=== PATIENT | male | born 1985 | race African-American/Black ===

== ENCOUNTER 2018-09-06 21:14 | Emergency (ER) | payer OTHER ==
[2018-09-06 21:56] VITALS: BP 152/98
[2018-09-06] MEDS ORDERED: PREDNISONE 20 MG TABLET PO ONE (22:44)
--- NOTE | 2018-09-06 22:53 | ER Document Report ---
ED General - General Chief Complaint: R side of face not moving Stated Complaint: SIDE OF FACE WILL NOT MOVE Time Seen by Provider: 09/06/18 22:32 Notes: Patient is a 33-year-old male that presents to the emergency department for chief complaint of right facial droop. Patient states that his symptoms started yesterday when he noticed this in the evening. He states his been about the same since it started. He is having difficulty smiling, and raising his eyebrow on the right side of his face. He states he was diagnosed with gout about a week ago, but denies any other recent illnesses, denies any recent cough, runny nose. He denies having any headache, lightheadedness or having any numbness. He denies having any weakness in any of his extremities, denies difficulty talking or swallowing. He also denies noting any recent fevers, chills, night sweats, nausea or vomiting. He also complains of mild pain in his left great toe, which she was diagnosed with gout, he was placed on Motrin for this, he rates the pain as a 2 out of 10, and is improved from what it initially started. Past Medical History: Gout, hypertension, HIV+ Past Surgical History: Denies surgical history Social History: Admits to occasional alcohol use, denies tobacco or illicit drug use. Family History: Reviewed and noncontributory for presenting illness Allergies: Reviewed, see documented allergy list. REVIEW OF SYSTEMS: Other than noted above, the 12 point review of systems was reviewed with the patient and were negative, all pertinent findings are included in the HPI. PHYSICAL EXAMINATION: Vital signs reviewed, nursing noted reviewed. GENERAL: Well-appearing, well-nourished and in no acute distress. HEAD: Atraumatic, normocephalic. EYES: extraocular movements intact, sclera anicteric, conjunctiva are normal. No conjunctival injection, mild ptosis on the right ENT: nares patent, oropharynx clear without exudates. Moist mucous membranes. NECK: Normal range of motion, supple without lymphadenopathy LUNGS: Breath sounds clear to auscultation bilaterally and equal. No wheezes rales or rhonchi. HEART: Regular rate and rhythm without murmurs ABDOMEN: Soft, nontender, normoactive bowel sounds. No rebound, guarding, or rigidity. No masses appreciated. EXTREMITIES: Mild tenderness to palpation to the left first MCP joint, there is no erythema or swelling noted. Good range of motion. The rest of the extremity exam is unremarkable and nontender, good range of motion, no pitting or edema. NEUROLOGICAL: Moves all extremities spontaneously Motor and sensory grossly intact on exam. Patient has right facial nerve paralysis, unable to raise his eyebrow on the right, or smile, he has difficulty closing his right eye completely. PSYCH: Normal mood, normal affect. SKIN: Warm, Dry, normal turgor, no rashes or lesions noted on exposed skin TRAVEL OUTSIDE OF THE [place] IN LAST 30 DAYS: No - Related Data Allergies/Adverse Reactions: No Known Allergies Allergy (Verified 09/06/18 22:54) Past Medical History - Social History Smoking Status: Never Smoker Family History: Reviewed & Not Pertinent Physical Exam - Vital signs Vitals: Temp Pulse Resp BP Pulse Ox 98.9 F 72 17 152/98 H 100 09/06/18 21:54 09/06/18 21:54 09/06/18 21:54 09/06/18 21:54 09/06/18 21:54 Course - Re-evaluation Re-evalutation: Patient seen and examined vital signs reviewed. Patient was evaluated and treated as appropriate for the patient's presenting symptoms and complaint, with consideration of any critical or life threatening conditions that may be associated with their obtained history and exam as noted above. Patient's physical exam is most consistent with Trevizo's palsy, no other focal neurological deficits Patient was treated with oral steroid The patient was re-evaluated and was stable, he was provided with an eye patch, advised to use artificial tears liberally, and to take a steroid taper as prescribed, he is given a eye patch to wear at night, to protect his eye from any corneal abrasion or ulcer. Evaluation was most consistent with Trevizo's palsy, gout Plan of care was discussed with the patient at this point, after careful consideration I feel that that patient can be discharged from the emergency department, the patient was educated treatments and reasons to return to the emergency department based on their presumed diagnosis as noted above, they were advised to followup with a primary care physician in 2-3 days. Patient was agreeable to plan of care. *Note is created using voice recognition software and may contain spelling, syntax or grammatical errors. - Vital Signs Vital signs: Temp Pulse Resp BP Pulse Ox 98.9 F 72 17 152/98 H 100 09/06/18 21:54 09/06/18 21:54 09/06/18 21:54 09/06/18 21:54 09/06/18 21:54 Discharge - Discharge Clinical Impression: Right-sided Trevizo's palsy Gout Qualifiers: Gout site: toe Gout etiology: unspecified cause Chronicity: acute Laterality: left Qualified Code(s): M10.9 - Gout, unspecified Condition: Stable Disposition: HOME, SELF-CARE Instructions: Trevizo's Palsy ([facility]), Steroid Medication Additional Instructions: Please use artificial tears throughout the day, to keep your right eye lubricated, take the prednisone taper as directed, use the eye patch only at night, to protect your eye. Please follow-up with a primary care physician. Prescriptions: Prednisone [Deltasone 10 mg Tablet] 10 mg PO ASDIR #45 tablet Referrals: EASTON YAN MD [[facility]] - Follow up in 3-5 days (OR YOUR PRIMARY CARE. )
== END 2018-09-06 23:05 | disposition home or self-care (01) ==
LOC: ER 21:14
DX: G51.0 Bell's palsy (principal); M10.9 Gout, unspecified; I10 Essential (primary) hypertension; Z21 Asymptomatic human immunodeficiency virus [HIV] infection status
CPT/HCPCS: 99284; J7512